=== PATIENT | male | born 1950 | race Hispanic/Latino ===

== ENCOUNTER 2017-06-16 07:21 | Day surgery (SDC) | payer MEDICARE, BC ==
[2017-06-08 11:40] VITALS: BMI 23.7
[2017-06-16] MEDS ORDERED: Propofol 10 mg/ml Inj (20 ML) ONE (08:17)
[2017-06-16] MEDS ORDERED: Lactated Ringer's 1,000 ML IV SCH (08:45)
[2017-06-16 09:28] VITALS: O2SAT 98
[2017-06-16 10:08] VITALS: BP 142/76; PULSE 68; RESP 17; TEMP 97.8
== END 2017-06-16 10:40 | disposition home or self-care (01) ==
LOC: ENDO 07:21
PROVIDERS: ATTEND Specialist
DX: D12.5 Benign neoplasm of sigmoid colon (principal); K57.30 Diverticulosis of large intestine without perforation or abscess without bleeding; K64.8 Other hemorrhoids; Z12.11 Encounter for screening for malignant neoplasm of colon
CPT/HCPCS: 45380; 88305; J2001; J2704; J7120